=== PATIENT | female | born 1945 | race Caucasian/White ===

== ENCOUNTER 2020-11-01 12:34 | Outpatient (CLI) | payer MEDICARE, OTHER | END 2020-11-01 23:59 | disposition home or self-care (01) | LOC: RAD 12:34 | PROVIDERS: ATTEND Orthopaedic Surgery | DX: S32.02 Fracture of second lumbar vertebra (principal) ==

== ENCOUNTER → 2020-11-02 | Outpatient (CLI) | payer MEDICARE | END | disposition home or self-care (01) | LOC: STAR 13:40 | PROVIDERS: ATTEND Internal Medicine | DX: Z20.822 Contact with and (suspected) exposure to COVID-19 (principal) | CPT/HCPCS: U0003 ==

== ENCOUNTER 2020-11-06 11:49 | Day surgery (SDC) | payer MEDICARE ==
[~2020-11-06] VITALS: Ht 160 cm; Wt 76.2 kg
[2020-11-06 12:19] VITALS: BP 120/78
[2020-11-06] MEDS ORDERED: CHLORHEXIDINE 15 ML UDC PO ONE (12:30)
[2020-11-06] MEDS ORDERED: LACTATED RINGERS 1,000 ML IV SCH (12:30)
[2020-11-06] MEDS ORDERED: LIDOCAINE 1%, 20ML ONE (13:44)
[2020-11-06] MEDS ORDERED: FENTANYL PF 100 MCG/2ML ONE (13:47)
[2020-11-06] MEDS ORDERED: HYDROmorphone 1 MG/ML, 1ML INJ ONE (13:48)
[2020-11-06] MEDS ORDERED: MIDAZOLAM 1 MG/ML, 2ML ONE (13:48)
[2020-11-06] MEDS ORDERED: VISIPAQUE 270 MG/ML, 50ML BOTTLE ONE (14:00)
[2020-11-06] MEDS ORDERED: METHOCARBAMOL 1,000 MG in DEXTROSE 5% 100 ML IV PRN (15:00)
[2020-11-06] MEDS ORDERED: HYDROmorphone 1 MG/ML, 1ML INJ IVPush PRN (15:00)
[2020-11-06] MEDS ORDERED: FENTANYL PF 100 MCG/2ML IV PRN (15:00)
[2020-11-06] MEDS ORDERED: METOPROLOL 1 MG/ML, 5ML IV PRN (15:00)
[2020-11-06] MEDS ORDERED: EPHEDRINE 50 MG/ML, 1ML IVPush PRN (15:00)
[2020-11-06] MEDS ORDERED: hydrALAzine 20 MG/ML, 1ML IV PRN (15:00)
[2020-11-06] MEDS ORDERED: DIPHENHYDRAMINE 50 MG/ML, 1ML IVPush PRN (15:00)
[2020-11-06] MEDS ORDERED: ALBUTEROL SULFATE 2.5 MG/3 ML NPPB PRN (15:00)
[2020-11-06] MEDS ORDERED: OXYcodone 5 MG/5 ML ORAL.SOL UDC PO PRN (15:00)
[2020-11-06] MEDS ORDERED: METOCLOPRAMIDE 5 MG/ML, 2ML IVPush PRN (15:00)
[2020-11-06] MEDS ORDERED: PROMETHAZINE 25 MG/ML, 1ML IVPush PRN (15:00)
[2020-11-06] MEDS ORDERED: MEPERIDINE/PF 25MG/0.5ML IVPush PRN (15:00)
[2020-11-06] MEDS ORDERED: ACETAMINOPHEN 325 MG TABLET PO PRN (15:00)
[2020-11-06] MEDS ORDERED: ONDANSETRON 2MG/ML, 2ML IVPush PRN (15:00)
[2020-11-06] MEDS ORDERED: LABETALOL 5MG/ML, 20ML IV PRN (15:00)
[2020-11-06] MEDS ORDERED: ONDANSETRON 2MG/ML, 2ML ONE (16:03)
[2020-11-06] MEDS ORDERED: DEXAMETHASONE 4 MG/ML, 1ML ONE (16:03)
[2020-11-06] MEDS ORDERED: CEFAZOLIN 1,000 MG ONE (16:03)
[2020-11-06] MEDS ORDERED: ROCURONIUM 10MG/ML,5ML ONE (16:03)
[2020-11-06] MEDS ORDERED: PHENYLEPHRINE 10 MG/ML ONE (16:03)
[2020-11-06] MEDS ORDERED: PROPOFOL 10 MG/ML, 20ML ONE (16:03)
[2020-11-06] MEDS ORDERED: EPHEDRINE 50 MG/ML, 1ML ONE (16:03)
[2020-11-06] MEDS ORDERED: SUCCINYLCHOLINE 20 MG/ML, 10ML ONE (16:03)
== END 2020-11-06 19:10 | disposition home or self-care (01) ==
LOC: OUT 11:49
PROVIDERS: ATTEND Orthopaedic Surgery
DX: M48.56XA Collapsed vertebra, not elsewhere classified, lumbar region, initial encounter for fracture (principal); I10 Essential (primary) hypertension; E78.5 Hyperlipidemia, unspecified; K21.9 Gastro-esophageal reflux disease without esophagitis; E03.9 Hypothyroidism, unspecified; Z79.891 Long term (current) use of opiate analgesic; Z79.899 Other long term (current) drug therapy; Z87.891 Personal history of nicotine dependence; Z82.61 Family history of arthritis
CPT/HCPCS: 22514; 93005; C1713; J0330; J0690; J1100; J1170; J2250; J2370; J2405; J2704; J3010; J7120; Q9966; C9359